=== PATIENT | male | born 1965 | race Two or more races ===

== ENCOUNTER 2024-05-28 14:11 | Emergency (ER) | payer MEDICAID, SELFPAY ==
[2024-05-28 14:23] VITALS: BP 178/105; PULSE 96; RESP 18; TEMP 36.8; O2SAT 98
--- NOTE | 2024-05-28 14:44 | XR_ITS ---
Examination: CT abdomen and pelvis without contrast. Coronal 3-D reconstructions. Sagittal 2-D reconstructions. Date and time of exam:May 28, 2024 1521 hrs. Indications: Unable to urinate today. CTDI: vol (mGy): 8.58 DLP: (mGycm): 572 Technique: Axial images of the abdomen have been obtained, 3 mm slice thickness Intravenous contrast material has not been administered. Low dose protocols were performed. One or more of the following dose reduction techniques were used; automated exposure control, adjustment of the mA and/or KV according to patient size, use of iterative reconstruction technique. 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
--- NOTE | 2024-05-28 14:47 | PD.EDRME ---
Rapid Medical Screening Exam RME Arrival date/time: 05/28/24 14:11 58-year-old male presents to the emergency department today complains of urinary retention patient attributes this to possibly be related to sticking a probe inside of his penis months ago Chief Complaint: General Adult/Misc Complain Time Seen by Provider: 05/28/24 18:08 Vital signs: Vital Signs Temperature 98.2 F 05/28/24 14:23 Pulse Rate 96 05/28/24 14:23 Respiratory Rate 18 05/28/24 14:23 Blood Pressure 178/105 H 05/28/24 14:23 Pulse Oximetry (%) 98 05/28/24 14:23 Oxygen Delivery Method Room Air 05/28/24 14:23
[2024-05-28] MEDS: KETOROLAC INJ 30 MG/ML VIAL IM (15:14)
[2024-05-28 15:19] LABS: Collection Type, Urine Clean Catch; Squamous Epithelial Cell,Urine 0 /hpf (0-5); WBC,Urine 0 /hpf (0-5)
[2024-05-28 16:22] LABS: Basophils # (Auto) 0.1 Thou/mm3 (0.0-0.2); Basophils % (Auto) 1 % (0-2.5); Eosinophils % (Auto) 0 % (0-10); Hematocrit 44.4 % (41.0-53.0); Hemoglobin 15.6 g/dL (13.5-16.0); Immature Granulocytes % (Auto) 1 % (0-0); Lymphocytes % (Auto) 5 % (10-50); Mean Corpuscular HGB Conc 35.1 g/dl (31.0-37.0); Mean Corpuscular Hemoglobin 31.5 pg (25.0-35.0); Mean Corpuscular Volume 90 fL (80-100); Monocytes # (Auto) 1.1 Thou/mm3 (0.0-0.8); Monocytes % (Auto) 6 % (0-12); Neutrophils % (Auto) 88 % (37-80); Nucleated Red Blood Cell % 0 /100 WBC (0); Platelet Count 240 Thou/mm3 (140-440); RDW Standard Deviation 42.4 fL (35.1-43.9); Red Blood Count 4.95 Miln/mm3 (4.50-5.90); White Blood Count 19.3 Thou/mm3 (3.8-10.6)
[2024-05-28 16:42] LABS: Alanine Aminotransferase 28 U/L (10-49); Albumin, Serum 4.9 gm/dL (3.5-5.0); Albumin/Globulin Ratio 1.8 (1.2-2.2); Alkaline Phosphatase 62 U/L (46-116); Anion Gap 8 (7-16); Aspartate Amino Transferase 24 U/L (0-34); BUN/Creatinine Ratio 10 Ratio (12-20); Bilirubin,Total 0.8 mg/dL (0.3-1.2); Blood Urea Nitrogen 12 mg/dL (9-23); Calcium 9.4 mg/dL (8.3-10.6); Calcium (Corrected) 9.4 mg/dL (8.5-10.1); Carbon Dioxide 30.3 mMol/L (20.0-31.0); Chloride 104 mMol/L (98-107); Creatinine (Component) 1.2 mg/dL (0.6-1.3); Globulin 2.8 gm/dL (2.3-3.5); Glucose 134 mg/dL (74-106); Osmolality,Calculated 284 (275-295); Potassium 3.7 mMol/L (3.4-5.1); Sodium 142 mMol/L (136-145); Total Protein 7.7 gm/dL (5.7-8.2); eGFR > 60 See Note
[2024-05-28 16:47] LABS: Bilirubin,Urine Negative (Negative); Blood,Urine 3+ (Negative); Culture Indicated,Urine Not Indicated; Glucose, Urine Trace (Negative); Ketones,Urine Negative (Negative); Leukocyte Esterase,Urine Negative (Negative); Nitrite,Urine Negative (Negative); Protein,Urine 3+ (Neg - Trace); RBC,Urine 111217 /hpf (0-3); Specific Gravity,Urine 1.023 (1.001-1.035); Urobilinogen,Urine Negative mg/dL (0.0-1.0)
[2024-05-28 16:50] LABS: Clarity,Urine Bloody (Clear/Hazy); Color,Urine Drk-Red (Lt Yel-Yel)
--- NOTE | 2024-05-28 19:52 | EDNOTE_ITS ---
ED General RME/HPI General Chief complaint: General Adult/Misc Complain Stated complaint: UNABLE TO URINATE, TRICKLES OUT Time Seen by Provider: 05/28/24 18:08 Arrival date/time: 05/28/24 14:11 CC: Urinary retention HPI after sticking a probe inside his penis approximately 2 months ago the patient felt that this was the cause initially of him feeling like his urine is stopped coming out . Prior to my assessment of the patient Velazquez catheter and been ordered and placed while in a different part of the triage area. He continues to drain bright red blood. Patient contends it is all painless. The patient has had a no past medical history has not seen a doctor in years denies any nausea abdominal pain chest pain shortness of breath difficulty breathing headache nausea vomiting. Patient is on no end medicines has no allergies is afebrile nontoxic-appearing not in any acute distress but is somewhat anxious. At 2130, patient informed the nurse he is [employer]es not wanting any blood products. RME / HPI RME / HPI narrative: 05/28/24 14:11 58-year-old male presents to the emergency department today complains of urinary retention patient attributes this to possibly be related to sticking a probe inside of his penis months ago Related Data Allergies Allergy/AdvReac Type Severity Reaction Status Date / Time No Known Allergies Allergy Verified 05/28/24 14:14 Review of Systems Review of Systems Narrative Review of Systems: GEN: No fever, no chills, no weight loss EYES: No discharge, no visual changes, no pain HEENT: No ear pain, no congestion, no sore throat PULM: No shortness of breath, no cough, no congestion CV: No chest pain, no dyspnea on exertion, no palpitations GI: No nausea, no vomiting, no diarrhea, no pain, no constipation : No frequency, no urgency, no dysuria, urinary retention MUSC/SKEL: No joint pain, no back pain SKIN: No rash PSYCH: No hallucinations, no depression HEME/LYMPH: No easy bleeding or bruising tendencies NEURO: No weakness, no headache Past Medical History Social History SMOKING STATUS: Never smoker ED Exam Narrative Physical exam: [General: Not in any acute distress, somewhat flat affect. Head normocephalic HEENT: Eyes: Pupils are PERRLA EOMs are intact mouth pink moist membranes uvula is midline swallow symmetrical phonation is normal all the subsystems of ATTR within acceptable limits Neck is supple nontender Chest equal chest rise nontender to palpation Respiratory: Clear to auscultation no wheezes crackles or rubs CV: Rate rhythm is regular no murmurs rubs or clicks Abdomen is soft nontender no masses positive bowel sounds all 4 quadrants : The patient has a Velazquez catheter admitted from his meatus of his penis, there is no crusting around the meatus however the Velazquez catheter is draining burgundy colored urine approximately 500 cc in the bag. Back: No CVA tenderness no spinous process tenderness from cervical spine thoracic and lumbar spine Skin: Intact no petechiae rash induration ulceration or crepitus Extremities: Moving all extremity against resistance cap refill less than 2 seconds neurosensory intact Neuro: Awake alert oriented x3 Glascow coma 15 no focal deficits] Course Course Course Narrative: Patient's case declined at [facility] to talk to urologist, who stated he needs tertiary care including interventional radiology to stop the bleeding. [place] declined Spoke with Dr. Reynolds at 2125 he agrees to accept the patient at [facility]. Currently waiting to give report to the ER at [facility]. Dr Esteban ER doctor agrees to accept the patient for admission Quality Measures none Orders Category Date Time Status Velazquez [Urinary Catheter] NOW Care 05/28/24 14:43 Completed Velazquez to Leg Bag Routine Care 05/28/24 14:[address] abdomen pelvis wo con Stat Exams 05/28/24 14:44 Completed CBC Stat Lab 05/28/24 16:03 Completed CBC Stat Lab 05/28/24 20:29 Completed Comprehensive Metabolic Panel Stat Lab 05/28/24 16:03 Completed PT [Prothrombin Time with INR] Stat Lab 05/28/24 20:29 Completed PTT [Partial Thromboplastin Time] Stat Lab 05/28/24 20:29 Completed Type and Screen Stat Lab 05/28/24 20:29 Completed UA, C/S IF [Urinalysis, C/S if Indicated] Stat Lab 05/28/24 14:58 Completed Ketorolac Inj [Toradol Inj] Med 05/28/24 15:00 Discontinued 30 mg IM X1 ONE Morphine Inj Med 05/28/24 21:41 Discontinued 4 mg IVP X1 ONE Ondansetron Inj [Zofran Inj] Med 05/28/24 21:41 Discontinued 4 mg IV X1 ONE Sodium Chloride 0.9% 1000 ml [Ns] 1,000 ml Med 05/28/24 21:41 Discontinued IV 125 mls/hr Vital Signs Vital signs: Vital Signs Temperature 98.2 F 05/28/24 14:23 Pulse Rate 96 05/28/24 14:23 Respiratory Rate 18 05/28/24 14:23 Blood Pressure 178/105 H 05/28/24 14:23 Pulse Oximetry (%) 98 05/28/24 14:23 Oxygen Delivery Method Room Air 05/28/24 14:23 Discharge Plan Plan Patient Disposition: [facility] Acute Care [facility] Facility Pt Being Transferred to: Other-Specify in comment Service Needed for Transfer: Urology Prescriptions/Referrals Referrals: Allan Casas MD [Primary Care Provider] - In 1 week Problem List Clinical Impression: Renal mass, Abdominal hemorrhage Patient/Caregiver Discharge Instructions Print Language: Sammarinese Stand Alone Forms: Brooke Award Info., Patient Portal Info Letter PA/PLANT EQUIPMENT ENGINEER Supervising Physician PA/PLANT EQUIPMENT ENGINEER Supervising Physician: Ayo Babcock ENP MDM Patient Acuity High Acuity (complete MDM) Clinical Information Provided by: patient Medical Records reviewed [facility] Medical Records additional comments: No old medical records Labs/Rad/Tests considered, not ordered Describe: CBC shows a leukocytosis of 19.3 and H&H that is unremarkable, platelet count of 240. CMP shows no significant electrolyte imbalances no renal impairment transaminitis glucose of 134. T. bili is normal. Urine is dark red bloody with greater than 100,000 RBCs no bacteria negative for leukocyte esterase. Imaging Imaging Interpretation(s): CT shows a large right renal mass with probable hemorrhage 11 x 13 x 12 cm. Medication Administration(s) none Medication Administration History Discontinued Medications Sodium Chloride (Ns) 1,000 mls @ 125 mls/hr IV .Q8H ONE Stop: 05/29/24 05:40 Last Admin: 05/28/24 21:51 Dose: 125 mls/hr Documented By: EF Ketorolac Tromethamine (Ketorolac Inj 30 Mg/Ml Vial) 30 mg IM X1 ONE Stop: 05/28/24 15:01 Last Admin: 05/28/24 15:14 Dose: 30 mg Documented By: KF Morphine Sulfate (Morphine Sulf Inj 10 Mg/Ml Vial) 4 mg IVP X1 ONE Stop: 05/28/24 21:42 Last Admin: 05/28/24 21:51 Dose: 4 mg Documented By: EF Ondansetron HCl (Ondansetron Inj 2 Mg/Ml Inj 2 Ml) 4 mg IV X1 ONE; Protocol Stop: 05/28/24 21:42 Last Admin: 05/28/24 21:51 Dose: 4 mg Documented By: EF
[2024-05-28 20:13] VITALS: BP 124/94; PULSE 68; RESP 19; TEMP 36.9; O2SAT 97
[2024-05-28 21:03] LABS: Basophils # (Auto) 0.1 Thou/mm3 (0.0-0.2); Basophils % (Auto) 0 % (0-2.5); Eosinophils % (Auto) 0 % (0-10); Hematocrit 34.1 % (41.0-53.0); Immature Granulocytes % (Auto) 0 % (0-0); Immature Granulocytes Auto 0.06 Thou/mm3 (0.00-0.00); Lymphocytes # (Auto) 1.8 Thou/mm3 (1.0-4.8); Lymphocytes % (Auto) 12 % (10-50); Mean Corpuscular HGB Conc 35.2 g/dl (31.0-37.0); Mean Corpuscular Hemoglobin 31.9 pg (25.0-35.0); Mean Corpuscular Volume 91 fL (80-100); Monocytes # (Auto) 1.5 Thou/mm3 (0.0-0.8); Monocytes % (Auto) 10 % (0-12); Neutrophils # (Auto) 11.7 Thou/mm3 (1.8-7.7); Neutrophils % (Auto) 78 % (37-80); Nucleated Red Blood Cell % 0 /100 WBC (0); Platelet Count 216 Thou/mm3 (140-440); RDW Standard Deviation 42.9 fL (35.1-43.9); Red Blood Count 3.76 Miln/mm3 (4.50-5.90)
[2024-05-28 21:16] LABS: INR 1.1 (0.9-1.3); Partial Thromboplastin Time 25.1 Seconds (22.0-36.0); Prothrombin Time 11.9 Seconds (9.0-12.2)
--- NOTE | 2024-05-28 21:18 | PC.LAC ---
1954 NITHYA NEGRON CONTACTED PT DECLINED STATING PT NEEDS [facility]. 2146 RYLIE ANDERSON CONTACTED. 2154 [facility] CONTACTED WILL RETURN CALL MESSAGE WAS LEFT WITH UROLOGIST.
[2024-05-28 21:47] VITALS: BP 116/79; PULSE 78
[2024-05-28] MEDS: SODIUM CHLORIDE 0.9% 1000 ML 1,000 ML 125 ML IV (21:51)
[2024-05-28] MEDS: ONDANSETRON INJ 2 MG/ML INJ 2 ML 4 MG IV (21:51)
[2024-05-28] MEDS: MORPHINE SULF INJ 10 MG/ML VIAL 4 MG IVP (21:51)
--- NOTE | 2024-05-28 22:04 | PC.NURSE ---
[address] HUGHES WITH [facility].
--- NOTE | 2024-05-28 22:25 | PC.NURSE ---
report given to reach nurse fernanda
== END 2024-05-28 22:36 | disposition short-term general hospital (02) ==
PROVIDERS: Nurse Practitioner Primary Care; Registered Nurse General Practice; Emergency Provider Emergency Medicine; PCP Family Medicine
DX: N28.89 Other specified disorders of kidney and ureter (principal); R58 Hemorrhage, not elsewhere classified
CPT/HCPCS: 51702; 36415; 74176; 80053; 81001; 85025; 85610; 85730; 86850; 86900; 86901; 96372; 96374; 96375; 99285; J1885; J2270; J2405; J7030

== ENCOUNTER 2024-09-30 00:53 | Emergency (ER) | payer MEDICAID, SELFPAY ==
[2024-09-30 00:55] VITALS: BMI 28.1
[2024-09-30 01:44] VITALS: BP 192/107; PULSE 87; RESP 16; TEMP 36.7; O2SAT 98
--- NOTE | 2024-09-30 02:50 | EKG_ITS ---
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
[2024-09-30 03:03] VITALS: BP 179/114; BP 197/111; PULSE 78; RESP 18; TEMP 36.7; O2SAT 98
[2024-09-30 03:51] LABS: Basophils # (Auto) 0.1 Thou/mm3 (0.0-0.2); Basophils % (Auto) 1 % (0-2.5); Eosinophils # (Auto) 0.2 Thou/mm3 (0.0-0.5); Eosinophils % (Auto) 3 % (0-10); Hematocrit 43.1 % (41.0-53.0); Hemoglobin 14.4 g/dL (13.5-16.0); Immature Granulocytes Auto 0.03 Thou/mm3 (0.00-0.00); Lymphocytes # (Auto) 1.9 Thou/mm3 (1.0-4.8); Lymphocytes % (Auto) 23 % (10-50); Mean Corpuscular HGB Conc 33.4 g/dl (31.0-37.0); Mean Corpuscular Hemoglobin 30.0 pg (25.0-35.0); Mean Corpuscular Volume 90 fL (80-100); Monocytes # (Auto) 0.7 Thou/mm3 (0.0-0.8); Monocytes % (Auto) 9 % (0-12); Neutrophils # (Auto) 5.1 Thou/mm3 (1.8-7.7); Neutrophils % (Auto) 64 % (37-80); Nucleated Red Blood Cell # 0.00 Thou/mm3 (0.00-0.00); Nucleated Red Blood Cell % 0 /100 WBC (0); Platelet Count 289 Thou/mm3 (140-440); RDW Standard Deviation 43.8 fL (35.1-43.9); Red Blood Count 4.80 Miln/mm3 (4.50-5.90); White Blood Count 8.1 Thou/mm3 (3.8-10.6)
[2024-09-30 04:03] LABS: INR 1.0 (0.9-1.3); Prothrombin Time 11.0 Seconds (9.0-12.2)
[2024-09-30 04:09] LABS: Alanine Aminotransferase 28 U/L (10-49); Albumin, Serum 4.9 gm/dL (3.5-5.0); Albumin/Globulin Ratio 1.5 (1.2-2.2); Alkaline Phosphatase 75 U/L (46-116); Anion Gap 10 (7-16); Aspartate Amino Transferase 14 U/L (0-34); BUN/Creatinine Ratio 10 Ratio (12-20); Bilirubin,Total 0.6 mg/dL (0.3-1.2); Blood Urea Nitrogen 15 mg/dL (9-23); Calcium 10.3 mg/dL (8.3-10.6); Calcium (Corrected) 10.3 mg/dL (8.5-10.1); Carbon Dioxide 28.7 mMol/L (20.0-31.0); Chloride 104 mMol/L (98-107); Creatinine (Component) 1.5 mg/dL (0.6-1.3); Estimated Creatinine Clearance 56.6 mL/min (>60); Globulin 3.2 gm/dL (2.3-3.5); Glucose 109 mg/dL (74-106); Magnesium 2.0 mg/dL (1.6-2.6); Osmolality,Calculated 286 (275-295); Potassium 4.2 mMol/L (3.4-5.1); Sodium 143 mMol/L (136-145); Total Protein 8.1 gm/dL (5.7-8.2); Troponin I < 0.020 ng/mL (0.0-0.045); eGFR 54 See Note
[2024-09-30 04:47] LABS: Collection Type, Urine Clean Catch
[2024-09-30 04:50] LABS: Bilirubin,Urine Negative (Negative); Blood,Urine Negative (Negative); Clarity,Urine Clear (Clear/Hazy); Color,Urine Colorless (Lt Yel-Yel); Culture Indicated,Urine Not Indicated; Glucose, Urine Negative (Negative); Ketones,Urine Negative (Negative); Leukocyte Esterase,Urine Negative (Negative); Nitrite,Urine Negative (Negative); PH,Urine 7.0 (5.0-7.0); Protein,Urine Negative (Neg - Trace); RBC,Urine < 1 /hpf (0-3); Specific Gravity,Urine 1.004 (1.001-1.035); Squamous Epithelial Cell,Urine < 1 /hpf (0-5); Urobilinogen,Urine Negative mg/dL (0.0-1.0); WBC,Urine < 1 /hpf (0-5)
[2024-09-30 05:01] LABS: Amphetamine/Methamp Scrn,U Negative (Negative); Barbiturate Screen,Urine Negative (Negative); Benzodiazepines Screen,Urine Negative (Negative); Benzoylecgonine Screen, Ur Negative (Negative); Fentanyl Screen,Urine Negative (Negative); Opiate Screen,Urine Negative (Negative); THC Screen,Urine Negative (Negative)
--- NOTE | 2024-09-30 05:15 | EDRME_ITS ---
Rapid Medical Screening Exam RME Arrival date/time: 09/30/24 00:53 59M with history of recent kidney resection due to tumor on it (done at [facility] in [place]) presents to ED with elevated BP and distal paresthesia. Patient has had increased stress at home due to mom letting drug- addict sibling stay with them. Patient denies MOON, blurry vision, CP, and SOB. Chief Complaint: General Adult/Misc Complain Vital signs: Vital Signs Temperature 98.1 F 09/30/24 01:44 Pulse Rate 87 09/30/24 01:44 Respiratory Rate 16 09/30/24 01:44 Blood Pressure 192/107 H 09/30/24 01:44 Pulse Oximetry (%) 98 09/30/24 01:44 Oxygen Delivery Method Room Air 09/30/24 01:44
--- NOTE | 2024-09-30 05:16 | XR_ITS ---
Examination: Retroperitoneal ultrasound, complete Technique: Multiple high resolution grayscale images of the retroperitoneum obtained, including kidneys and bladder. Exam date and time:September 30, 2024, 0734 hrs. Indications: High blood pressure beginning one week ago, history left nephrectomy June 2024. Findings: Right kidney 12.1 cm renal cortex 1.4 cm Mild renal parenchymal scar formation. No hydronephrosis. Absent left kidney. Contracted urinary bladder. No prostatomegaly, no prostate nodule, prostate volume 15 cc Impression: Right renal cortical thinning. Mild right renal parenchymal scar formation, no hydronephrosis
[2024-09-30 05:29] VITALS: BP 179/114; PULSE 78
[2024-09-30] MEDS: DIAZEPAM 5 MG TABLET PO (05:30)
[2024-09-30 08:46] VITALS: BP 156/116; BP 176/112; PULSE 81; RESP 18; TEMP 37.2; O2SAT 98
[2024-09-30 10:38] VITALS: BP 195/118; BP 204/107; PULSE 81; RESP 19; TEMP 36.7; O2SAT 99
--- NOTE | 2024-09-30 10:43 | PD.EDADULT ---
ED General RME/HPI General Chief complaint: General Adult/Misc Complain Stated complaint: FEELS LIKE BLOOD PRESSURE IS HIGH Time Seen by Provider: 09/30/24 08:50 Arrival date/time: 09/30/24 00:53 Limitations: no limitations RME / HPI RME / HPI narrative: 09/30/24 00:53 59M with history of recent kidney resection due to tumor on it (done at [facility] in [place]) presents to ED with elevated BP and distal paresthesia. Patient has had increased stress at home due to mom letting drug-addict sibling stay with them. Patient denies MOON, blurry vision, CP, and SOB. Related Data Previous Rx's ?Medication ?Instructions ?Recorded lisinopril 5 mg tablet 5 mg PO QDAY #14 tabs 10/03/24 hydroxyzine HCl 25 mg tablet 25 mg PO BID PRN nervous #30 tabs 10/27/24 Allergies Allergy/AdvReac Type Severity Reaction Status Date / Time No Known Allergies Allergy Verified 10/27/24 20:48 ED Exam General Limitations: Present no limitations General appearance: Present alert and in no apparent distress Head Head exam: Present atraumatic and normocephalic Eye Eye exam: Present normal appearance, PERRL and EOMI; Absent scleral icterus or conjunctival injection ENT ENT exam: Present normal exam, normal oropharynx and mucous membranes moist Neck Neck exam: Present normal inspection, full ROM and trachea midline; Absent tenderness, meningismus or lymphadenopathy Chest Chest inspection: Present normal inspection and symmetric chest wall rise Respiratory Respiratory exam: Present normal lung sounds bilaterally and respiratory distress Cardiovascular Cardiovascular exam: Present regular rate and normal rhythm Abdominal Exam Abdominal exam: Present soft; Absent distention, tenderness, guarding or rebound Extremities Exam Extremities exam: Present normal inspection Back Exam Back exam: Present normal inspection Neurological Exam Neurological exam: Present alert, oriented X3 and CN II-XII intact Psychiatric Psychiatric exam: Present normal affect and normal mood Skin Skin exam: Present warm, dry and intact Course Quality Measures none Orders Category Date Time Status EKG (ED ONLY) *Do not use* NOW Care 09/30/24 02:51 Completed EKG (ED Only) Stat Exams 09/30/24 02:50 Draft US renal BI Stat Exams 09/30/24 05:16 Completed CBC Stat Lab 09/30/24 03:38 Completed Comprehensive Metabolic Panel Stat Lab 09/30/24 03:38 Completed Drug Screen,Urine Stat Lab 09/30/24 04:16 Completed Magnesium Stat Lab 09/30/24 03:38 Completed Prothrombin Time with INR Stat Lab 09/30/24 03:38 Completed Troponin I Stat Lab 09/30/24 03:38 Completed UA, C/S IF [Urinalysis, C/S if Indicated] Stat Lab 09/30/24 04:16 Completed Diazepam [Valium] Med 09/30/24 05:15 Discontinued 5 mg PO X1 ONE amLODIPine BESYLATE [Norvasc] Med 09/30/24 10:53 Discontinued 5 mg PO X1 ONE hydrALAZINE HCL [Apresoline] Med 09/30/24 05:15 Discontinued 25 mg PO X1 ONE Vital Signs Vital signs: Vital Signs Temperature 98.1 F 09/30/24 01:44 Pulse Rate 87 09/30/24 01:44 Respiratory Rate 16 09/30/24 01:44 Blood Pressure 192/107 H 09/30/24 01:44 Pulse Oximetry (%) 98 09/30/24 01:44 Oxygen Delivery Method Room Air 09/30/24 01:44 Discharge Plan Plan Patient Disposition: HOME (Self Care) Prescriptions/Referrals Prescriptions/Med Rec: No Action lisinopril 5 mg tablet 5 mg PO QDAY Qty: 14 0RF hydroxyzine HCl 25 mg tablet 25 mg PO BID PRN (Reason: nervous) Qty: 30 0RF Referrals: Rafael Fitzgerald MD [Primary Care Provider] - In 1 week Problem List Clinical Impression: Acute kidney injury, Hypertension Patient/Caregiver Discharge Instructions Education Materials: Hypertension and Kidney Disease, Acute Kidney Failure Dc Additional Instructions: Please follow-up with your primary care doctor within 2 weeks. Please keep a log of your blood pressure measurement in the morning and in the evening before bed. Please do this for the next 2 weeks. Please take this journal to your primary care doctor and discuss whether or not you need to be started on medication for blood pressure control. Today your creatinine was 1.5, your GFR was 54. Previously your creatinine was 1.6 and your GFR was normal. Important that we monitor your blood pressure and renal function closely with your primary care doctor as an outpatient to make sure that your right kidney does not get injured as you only have 1 kidney. Please return immediately if you have worsening symptoms or new symptoms or concern. Print Language: Uzbek Stand Alone Forms: Brooke Award Info., Patient Portal Info Letter MDM Narrative MDM hospital course: Labs without acute hematologic abnormality, no leukocytosis, no left shift, patient hemoglobin 14.4, no acute electrolyte abnormalities, patient creatinine is 1.5 her prior recorded creatinine is 1.2. Patient GFR is 54, no significant other metabolic disturbance. Urinalysis without evidence of infection. Drug screen is negative. Renal ultrasound shows renal cortical thinning otherwise no other abnormalities. trop not elevated, ekg performed today at 3:06, sinus rhythm, nl int, non spec t wave changes, not a cardiac alert On reevaluation patient hemodynamically stable not distressed will discharge home close return precautions follow-up with his primary care doctor as well as his clinical transformation specialist. Patient w/o evidence of hypertensive emergency, acs or arrythmia. Clinical Information Provided by patient Medical Records Reviewed [facility] Meds/Rx Considered, not Ordered None Labs/Rad/Tests considered, not Ordered None Chronic Illness/Social Conditions which may negatively complicate care or outcome(s)-explain: other (HTN) Lab Interpretation Labs: interpreted by me and see narrative above Imaging Imaging interpretation: see narrative above Medication Administration(s) none Medication Administration History Discontinued Medications Amlodipine Besylate (Amlodipine Besylate 5 Mg Tablet) 5 mg PO X1 ONE Stop: 09/30/24 10:54 Last Admin: 09/30/24 11:55 Dose: Not Given Documented By: Non-Admin Reason: Cancelled by Provider Comments: not needed per provider spb less than 200 Diazepam (Diazepam 5 Mg Tablet) 5 mg PO X1 ONE Stop: 09/30/24 05:16 Last Admin: 09/30/24 05:30 Dose: 5 mg Documented By: OUMAR Hydralazine HCl (Hydralazine Hcl 25 Mg Tablet) 25 mg PO X1 ONE Stop: 09/30/24 05:16 Last Admin: 09/30/24 05:29 Dose: 25 mg Documented By: OUMAR see above Diagnosis Differential diagnosis: giovanni on CKD, htn Dispositon Disposition: Discharge Home
[2024-09-30 11:49] VITALS: BP 166/122; BP 185/112; PULSE 83; RESP 20; O2SAT 99
== END 2024-09-30 11:00 | disposition home or self-care (01) ==
PROVIDERS: Emergency Medicine; Emergency Provider Emergency Medicine; PCP Family Medicine
DX: N17.9 Acute kidney failure, unspecified (principal); I10 Essential (primary) hypertension
CPT/HCPCS: 36415; 76770; 80053; 80307; 81001; 83735; 84484; 85025; 85610; 93005; 99283; A9270

== ENCOUNTER 2024-10-02 22:18 | Emergency (ER) | payer MEDICAID, SELFPAY ==
[2024-10-02 22:19] VITALS: BMI 27.2
[2024-10-02 22:52] VITALS: BP 175/118; PULSE 93; RESP 17; TEMP 36.9; O2SAT 99
[2024-10-03 00:50] VITALS: BP 162/121; PULSE 70; RESP 20; TEMP 36.8; O2SAT 99
--- NOTE | 2024-10-03 02:27 | XR_ITS ---
Examination: CT brain head without contrast. 2-D sagittal coronal reconstructions Date and time of exam:October 03, 2024, 0309 hours INDICATIONS: Onset of high blood pressure and headache today CTDI: vol (mGy):50 DLP: (mGycm):1019. Technique: Multiple CT axial sections of the brain have been obtained, 5 mm slice thickness. Contrast has not been administered. 2-D sagittal, coronal reconstructions have been obtained Low dose protocols were performed. One or more of the following dose reduction techniques were used; automated exposure control, adjustment of the mA and/or KV according to patient size, use of iterative reconstruction technique. Findings: No significant ventricular enlargement. Intra-axial or extra-axial hemorrhage density is not seen. No mass effect or midline shift Basal cisterns are not remarkable. Fourth ventricle is midline. Cranial vault intact. Impression: Negative for acute hemorrhage, mass effect or midline shift
--- NOTE | 2024-10-03 02:28 | PD.EDRME ---
Rapid Medical Screening Exam RME Arrival date/time: 10/02/24 22:18 This is a case of 59-year-old male with history of hypertension came into the emergency room due to headache fever and high blood pressure persistence of the symptoms this patient decided to sought consult here in the emergency room Chief Complaint: General Adult/Misc Complain Time Seen by Provider: 10/02/24 23:56 Vital signs: Vital Signs Temperature 98.4 F 10/02/24 22:52 Pulse Rate 93 10/02/24 22:52 Respiratory Rate 17 10/02/24 22:52 Blood Pressure 175/118 H 10/02/24 22:52 Pulse Oximetry (%) 99 10/02/24 22:52 Oxygen Delivery Method Room Air 10/02/24 22:52
[2024-10-03 02:50] LABS: Basophils # (Auto) 0.1 Thou/mm3 (0.0-0.2); Basophils % (Auto) 1 % (0-2.5); Eosinophils # (Auto) 0.2 Thou/mm3 (0.0-0.5); Eosinophils % (Auto) 3 % (0-10); Hematocrit 40.3 % (41.0-53.0); Hemoglobin 14.1 g/dL (13.5-16.0); Immature Granulocytes Auto 0.02 Thou/mm3 (0.00-0.00); Lymphocytes # (Auto) 2.2 Thou/mm3 (1.0-4.8); Lymphocytes % (Auto) 25 % (10-50); Mean Corpuscular HGB Conc 35.0 g/dl (31.0-37.0); Mean Corpuscular Hemoglobin 30.5 pg (25.0-35.0); Mean Corpuscular Volume 87 fL (80-100); Monocytes # (Auto) 0.8 Thou/mm3 (0.0-0.8); Monocytes % (Auto) 9 % (0-12); Neutrophils # (Auto) 5.6 Thou/mm3 (1.8-7.7); Neutrophils % (Auto) 63 % (37-80); Nucleated Red Blood Cell # 0.00 Thou/mm3 (0.00-0.00); Nucleated Red Blood Cell % 0 /100 WBC (0); Platelet Count 278 Thou/mm3 (140-440); RDW Standard Deviation 42.8 fL (35.1-43.9); Red Blood Count 4.62 Miln/mm3 (4.50-5.90); White Blood Count 9.0 Thou/mm3 (3.8-10.6)
[2024-10-03 02:53] VITALS: BP 154/112; PULSE 75
[2024-10-03 02:54] VITALS: BP 154/112; PULSE 75
[2024-10-03 03:07] LABS: Alanine Aminotransferase 19 U/L (10-49); Albumin, Serum 4.5 gm/dL (3.5-5.0); Albumin/Globulin Ratio 1.6 (1.2-2.2); Alkaline Phosphatase 70 U/L (46-116); Anion Gap 10 (7-16); Aspartate Amino Transferase 13 U/L (0-34); BUN/Creatinine Ratio 8 Ratio (12-20); Bilirubin,Total 0.9 mg/dL (0.3-1.2); Blood Urea Nitrogen 11 mg/dL (9-23); Calcium 9.9 mg/dL (8.3-10.6); Calcium (Corrected) 9.9 mg/dL (8.5-10.1); Carbon Dioxide 27.8 mMol/L (20.0-31.0); Chloride 103 mMol/L (98-107); Creatinine (Component) 1.3 mg/dL (0.6-1.3); Estimated Creatinine Clearance 59.9 mL/min (>60); Globulin 2.8 gm/dL (2.3-3.5); Glucose 111 mg/dL (74-106); Osmolality,Calculated 281 (275-295); Potassium 3.7 mMol/L (3.4-5.1); Sodium 141 mMol/L (136-145); Total Protein 7.3 gm/dL (5.7-8.2); Troponin I < 0.020 ng/mL (0.0-0.045); eGFR > 60 See Note
--- NOTE | 2024-10-03 04:15 | PRELIM_ITS ---
CT scan of the head without intravenous contrast (axial sections with sagittal and coronal reformats). October 03, 2024 0309 hours Clinical History: HEADACHE Comparison: None Findings: There is no intracranial hemorrhage, extra-axial collection, mass, mass-effect or midline shift. There is good mulligan-white differentiation. There is no CT evidence of acute large vascular territorial infarct. Ventricles are not enlarged or effaced. Visualized paranasal sinuses and tympanomastoid cavities are clear. The bony calvarium is intact. Impression: No intracranial hemorrhage, mass-effect or midline shift. No CT evidence of acute large vascular territorial infarct. Report Electronically Signed By: Jake Munson 10/03/2024 4:14:34 AM [EST]
[2024-10-03 04:35] VITALS: BP 182/110; PULSE 72
[2024-10-03 04:36] VITALS: BP 182/110; PULSE 72
[2024-10-03 05:02] VITALS: BP 156/97; PULSE 100; RESP 17; TEMP 36.6; O2SAT 98
--- NOTE | 2024-10-03 05:09 | PD.EDHA ---
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 and regularly seeing his urologist denies any urinary symptoms patient was recently seen here on September 30, 2024 due to elevated BP and was treated here and symptoms resolved recurrence of the symptoms this patient decided to sought consult here in the emergency room Limitations: no limitations RME / HPI RME / HPI Narrative: 10/02/24 22:18 This is a case of 59-year-old male with history of hypertension came into the emergency room due to headache fever and high blood pressure persistence of the symptoms this patient decided to sought consult here in the emergency room Related Data Previous Rx's ?Medication ?Instructions ?Recorded lisinopril 5 mg tablet 5 mg PO QDAY #14 tabs 10/03/24 Allergies Allergy/AdvReac Type Severity Reaction Status Date / Time No Known Allergies Allergy Verified 05/28/24 14:14 Review of Systems Review of Systems Systems Reviewed: All systems reviewed, normal except as documented Constitutional Constitutional: Reports system reviewed and no additional complaints, except as documented and Reports as per HPI Eyes Eyes: Reports system reviewed and no additional complaints, except as documented and Denies blurry vision Cardiovascular Cardiovascular: Reports system reviewed and no additional complaints, except as documented, Reports as per HPI, Denies chest pain and Denies dyspnea Respiratory Respiratory: Reports system reviewed and no additional complaints, except as documented, Reports as per HPI and Denies dyspnea Gastrointestinal Gastrointestinal: Reports system reviewed and no additional complaints, except as documented and Reports as per HPI Neurologic Neurologic: Reports system reviewed and no additional complaints, except as documented and Reports as per HPI Past Medical History Past Medical History CARDIAC: Negative Congestive Heart Failure RESPIRATORY: Negative Chronic Obstructive Pulmonary Disease (COPD) GENITOURINARY: Negative Renal Disease ENDOCRINE: Negative Diabetes Mellitus Type 1 or Diabetes Mellitus Type 2 Social History SMOKING STATUS: Never smoker ED Exam General Limitations: Present no limitations General appearance: Present alert, in no apparent distress and other (Patient is awake alert oriented not in distress nontoxic looking well-hydrated well-nourished) Head Head exam: Present atraumatic, normocephalic and normal inspection Eye Eye exam: Present normal appearance, PERRL, EOMI and other (NO PAPPILEDEA NO HYPEMA) ENT ENT exam: Present normal exam, normal oropharynx, mucous membranes moist and other (Normal HEENT exam) Neck Neck exam: Present normal inspection, full ROM and trachea midline; Absent tenderness, meningismus, lymphadenopathy or thyromegaly Chest Chest inspection: Present normal inspection and symmetric chest wall rise; Absent tenderness, rash or abscess Respiratory Respiratory exam: Present normal lung sounds bilaterally; Absent respiratory distress, wheezes, stridor, accessory muscle use or prolonged expiratory phase Cardiovascular Cardiovascular exam: Present regular rate, normal rhythm and normal heart sounds; Absent bradycardia, tachycardia, irregular rhythm, systolic murmur or diastolic murmur Abdominal Exam Abdominal exam: Present soft and normal bowel sounds; Absent distention, tenderness, guarding, rebound, rigidity, diminished bowel sounds, hyperactive bowel sounds, hypoactive bowel sounds or organomegaly Extremities Exam Extremities exam: Present normal inspection and full ROM Back Exam Back exam: Present normal inspection and full ROM Neurological Exam Neurological exam: Present alert, oriented X3, CN II-XII intact, normal gait, reflexes normal and other (Awake alert oriented x 4 no focal deficit GCS 15/15 steady gait memory intact no facial droop no slurring of speech CN II to XII is normal motor or sensory reflex normal negative Babinski); Absent motor sensory deficit Psychiatric Psychiatric exam: Present normal affect and normal mood Skin Skin exam: Present warm, dry, intact and normal color Course Quality Measures none Orders Category Date Time Status Bedside COVID-19 Antigen Test NOW Care 10/03/24 02:27 Active Bedside Influenza A&B Antigen Test NOW Care 10/03/24 02:[address] head/brain wo con Stat Exams 10/03/24 02:27 Taken CBC Stat Lab 10/03/24 02:43 Completed CMP [Comprehensive Metabolic Panel] Stat Lab 10/03/24 02:43 Completed Troponin I Stat Lab 10/03/24 02:43 Completed Acetaminophen Tab [Tylenol Tab] Med 10/03/24 02:27 Discontinued 650 mg PO X1 ONE cloNIDine HCL [Catapres] Med 10/03/24 02:27 Discontinued 0.1 mg PO X1 ONE cloNIDine HCL [Catapres] Med 10/03/24 04:14 Discontinued 0.1 mg PO X1 ONE Vital Signs Vital signs: Vital Signs Temperature 98.4 F 10/02/24 22:52 Pulse Rate 93 10/02/24 22:52 Respiratory Rate 17 10/02/24 22:52 Blood Pressure 175/118 H 10/02/24 22:52 Pulse Oximetry (%) 99 10/02/24 22:52 Oxygen Delivery Method Room Air 10/02/24 22:52 Oxygen saturation is 99% in room air Headache MDM Narrative MDM Narrative:: This is a case of 59-year-old male who came in the emergency room due to headache on and off for 3 days associated with elevated blood pressure patient BP at home was 200/100 denies any numbness weakness tingling sensation denies dizziness nausea or vomiting denies any chest pain shortness of breath or palpitation patient is not taking any blood pressure medication only taking herbal 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 and regularly seeing his urologist denies any urinary symptoms patient was recently seen here on September 30, 2024 due to elevated BP and was treated here and symptoms resolved recurrence of the symptoms this patient decided to sought consult here in the emergency room physical examination patient is awake alert oriented not in distress nontoxic looking PERRL EOM intact normal conjunctiva NOPAPPILEDEMA no hyphema negative for meningeal signs lungs sound is clear no crackles no rales no retraction no stridor heart normal rate regular rhythm no murmur abdomen soft no guarding no rebound no rigidity patient blood test showed no leukocytosis no anemia kidney and liver function is normal no electrolyte imbalance urinalysis is normal CT scan of the head is normal and unremarkable EKG showed sinus rhythm 79 troponin is negative patient was given ibuprofen for headache and clonidine point total 0.2 mg p.o. for BP of 184/102 patient blood pressure was rechecked and observe after 1 hour headache was resolved and noted to be BP of 159/79 at this point patient will be discharged home with stable condition patient will follow-up with PCP in 2 days for reevaluation and to be referred to certified nurse midwife for further evaluation and treatment of uncontrolled hypertension I will prescribe patient with lisinopril low-dose 5 mg p.o. for 14 days until he will see his primary care physician for further evaluation and treatment and to continue the medication cardiac diet was advised continue to monitor blood pressure and also follow-up with his urologist patient is informed for any worsening symptoms or any emergent concern he will return in the emergency room immediately or call 911 neurological exam is normal and unremarkable Patient was discharged with comfortable condition walking with stable gait. Patient verbalized no further complains explained diagnosis and answered patient question. Patient is comfortable with the proposed management plan including the need to follow up with his/her primary care physician and any specialist if applicable Discussed patient for any urgent condition or worsening sx, He/She needed to go to emergency room immediately or call 911. Patient acknowledge the responsibility to follow up as instructed and to monitor her/his symptoms. For any persistence of the symptoms for more than 3-5 days return precaution advised. Discussed the result of the test and was given printed discharge instruction Patient data External records reviewed:: [facility] previous records Clinical information provided by:: patient Social determinants that could affect healthcare access:: none Patient has the following chronic illnesses:: None How is presenting disease/condition affected by chronic disease/condition?: no chronic disease Evaluation data The following diagnostics were reviewed and interpreted by me:: lab results and radiology exam(s) Lab and/or radiology exams considered but not ordered:: Reviewed Interpretation Summary: Reviewed Medications / Prescriptions Medications or Prescriptions considered but not ordered:: Given Medication administrations:: Medication Administration History Discontinued Medications Acetaminophen (Acetaminophen 325 Mg Tablet) 650 mg PO X1 ONE Stop: 10/03/24 02:28 Last Admin: 10/03/24 02:55 Dose: Not Given Documented By: EE Non-Admin Reason: Patient Refused Clonidine (Clonidine Hcl 0.1 Mg Tablet) 0.1 mg PO X1 ONE Stop: 10/03/24 02:28 Last Admin: 10/03/24 02:54 Dose: 0.1 mg Documented By: EE Clonidine (Clonidine Hcl 0.1 Mg Tablet) 0.1 mg PO X1 ONE Stop: 10/03/24 04:15 Last Admin: 10/03/24 04:36 Dose: 0.1 mg Documented By: EE Given Consultations Consultation(s) initiated? (list below): No Diagnosis Differential diagnosis headache: migraine, tension headache, headache and sinusitis Most likely diagnosis given after review of the tests above:: Headache Admission Indicated Admission indicated?: not indicated Explain why admission is indicated or not indicated:: Not indicated Admission Request Was there a request for admission?: No Admission Attestation Admission request attestation: Not indicated Disposition Plan Disposition Plan: Discharge Discharge Attestation Discharge Attestation: The patient and all family members were given an opportunity to ask questions and understood the discharge instructions. Discharge instructions specifically effects, indications for sooner follow up or return to the emergency department, and the expected course of current diagnosis. Patient condition: Stable Discharge Plan Plan Patient Disposition: HOME (Self Care) Patient condition on transfer: Stable Prescriptions/Referrals Prescriptions/Med Rec: New lisinopril 5 mg tablet 5 mg PO QDAY Qty: 14 0RF Referrals: Allan Casas MD [Primary Care Provider] - In 1 week Problem List Clinical Impression: Essential hypertension, Headache Patient/Caregiver Discharge Instructions Education Materials: Controlling High Blood Pressure, Self-Care for Headaches, Blood Pressure Check Steps, ED High Blood Pressure ... Additional Instructions: Follow-up with your primary care physician in 2 days for reevaluation and to be referred to certified nurse midwife for further evaluation and treatment of your uncontrolled hypertension and to be referred to neurologist for your headache worsening symptoms recurrence of the symptoms persistence of the symptoms return to the emergency room immediately or call 911 check your blood pressure twice a day and if your blood pressure greater than 160/100 or become symptomatic return to emergency room immediately or call 911 take your medication as directed keep hydrated cardiac diet low-fat low-salt low cholesterol diet is advised Print Language: Polish Stand Alone Forms: Brooke Award Info., Patient Portal Info Letter RIVKA/XENA Supervising Physician RIVKA/XENA Supervising Physician: Dr. Archie Alicea
== END 2024-10-03 05:14 | disposition home or self-care (01) ==
PROVIDERS: Nurse Practitioner Family; Emergency Provider Emergency Medicine; PCP Family Medicine
DX: R51.9 Headache, unspecified (principal); I10 Essential (primary) hypertension
CPT/HCPCS: 36415; 70450; 80053; 84484; 85025; 87400; 87811; 99283; A9270

== ENCOUNTER 2024-10-26 22:14 | Emergency (ER) | payer MEDICAID, SELFPAY ==
[2024-10-26 22:16] VITALS: BMI 27.3
[2024-10-26 23:40] VITALS: BP 202/116; PULSE 102; RESP 17; TEMP 36.9; O2SAT 98
--- NOTE | 2024-10-27 00:06 | EDNOTE_ITS ---
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 Patient denies MOON, dizziness, blurry vision, CP, and SOB. Limitations: no limitations Related Data Previous Rx's ?Medication ?Instructions ?Recorded lisinopril 5 mg tablet 5 mg PO QDAY #14 tabs Allergies Allergy/AdvReac Type Severity Reaction Status Date / Time No Known Allergies Allergy Verified 10/26/24 22:18 Review of Systems Review of Systems Systems Reviewed: All systems reviewed, normal except as documented Past Medical History Past Medical History CARDIAC: Negative Congestive Heart Failure RESPIRATORY: Negative Chronic Obstructive Pulmonary Disease (COPD) GENITOURINARY: Negative Renal Disease ENDOCRINE: Negative Diabetes Mellitus Type 1 or Diabetes Mellitus Type 2 Social History SMOKING STATUS: Never smoker ED Exam General Limitations: Present no limitations General appearance: Present alert, in no apparent distress and anxious Head Head exam: Present atraumatic Neck Neck exam: Present normal inspection, full ROM and trachea midline Chest Chest inspection: Present normal inspection and symmetric chest wall rise Neurological Exam Neurological exam: Present alert and oriented X3 Psychiatric Psychiatric exam: Present normal affect and anxious Skin Skin exam: Present warm, dry, intact and normal color Course Quality Measures none Orders Category Date Time Status Diazepam [Valium] Med 10/27/24 00:03 Once 5 mg PO X1 ONE hydrALAZINE HCL [Apresoline] Med 10/27/24 00:02 Once 25 mg PO X1 ONE Vital Signs Vital signs: Vital Signs Temperature 98.5 F 10/26/24 23:40 Pulse Rate 102 H 10/26/24 23:40 Respiratory Rate 17 10/26/24 23:40 Blood Pressure 202/116 H 10/26/24 23:40 Pulse Oximetry (%) 98 10/26/24 23:40 Oxygen Delivery Method Room Air 10/26/24 23:40 Anxiety MDM Narrative MDM Narrative: 59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 Patient denies MOON, dizziness, blurry vision, CP, and SOB. Physical exam reveals anxiety individual. Normal WOB. Speech normal, though pressured. Patient is afebrile and alert. Meds and associate professor of counseling given. Patient data External records reviewed:: [facility] previous records Clinical information provided by:: patient Social determinants that could affect healthcare access:: none Patient has the following chronic illnesses:: recent kidney resection How is presenting disease/condition affected by chronic disease/condition?: exacerbated by Evaluation data The following diagnostics were reviewed and interpreted by me:: other (specify) (none) Lab and/or radiology exams considered but not ordered:: not ordered Interpretation Summary: n/a Medications / Prescriptions Medications or Prescriptions considered but not ordered:: ordered Medication administrations:: Medication Administration History Diazepam (Diazepam 5 Mg Tablet) 5 mg PO X1 ONE Stop: 10/27/24 00:04 Hydralazine HCl (Hydralazine Hcl 25 Mg Tablet) 25 mg PO X1 ONE Stop: 10/27/24 00:03 Consultations Consultation(s) initiated? (list below): No Diagnosis Differential diagnosis anxiety: hyperventilation, panic disorder, acute anxiety and other (HTN) Most likely diagnosis given after review of the tests above:: HTN Admission Indicated Admission indicated?: not indicated Admission Request Was there a request for admission?: No Disposition Plan Disposition Plan: Discharge Discharge Attestation Discharge Attestation: The patient and all family members were given an opportunity to ask questions and understood the discharge instructions. Discharge instructions specifically effects, indications for sooner follow up or return to the emergency department, and the expected course of current diagnosis. Patient condition: Stable Discharge Plan Plan Patient Disposition: HOME (Self Care) Discharge Disposition comment: Stable Prescriptions/Referrals Prescriptions/Med Rec: No Action lisinopril 5 mg tablet 5 mg PO QDAY Qty: 14 0RF Problem List Clinical Impression: HTN (hypertension) Patient/Caregiver Discharge Instructions Education Materials: ED Hypertension, Established Additional Instructions: Please follow-up with PCP within 24-48 hours and return immediately if symptoms worsen. Make sure to keep taking your prescribed meds. Print Language: Russian Stand Alone Forms: Patient Portal Info Letter RIVKA/XENA Supervising Physician RIVKA/XENA Supervising Physician: Dr. Sabillon
[2024-10-27 00:17] VITALS: BP 202/116; PULSE 102
[2024-10-27] MEDS: DIAZEPAM 5 MG TABLET PO (00:17)
== END 2024-10-27 00:20 | disposition home or self-care (01) ==
LOC: SERX 10-27 00:37
PROVIDERS: Emergency Provider Emergency Medicine
DX: I10 Essential (primary) hypertension (principal); F41.9 Anxiety disorder, unspecified
CPT/HCPCS: 99282; A9270

== ENCOUNTER 2024-10-27 20:47 | Emergency (ER) | payer MEDICAID, SELFPAY ==
[2024-10-27 20:49] VITALS: BMI 27.3
[2024-10-27 20:55] VITALS: BP 157/99; PULSE 99; RESP 19; TEMP 36.9; O2SAT 99
--- NOTE | 2024-10-27 21:04 | PD.EDRECHK ---
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 Patient denies MOON, dizziness, blurry vision, CP, and SOB. Patient was here yesterday. Patient states Valium relieved symptoms. Limitations: no limitations Related Data Previous Rx's ?Medication ?Instructions ?Recorded lisinopril 5 mg tablet 5 mg PO QDAY #14 tabs 10/03/24 hydroxyzine HCl 25 mg tablet 25 mg PO BID PRN nervous #30 tabs 10/27/24 Allergies Allergy/AdvReac Type Severity Reaction Status Date / Time No Known Allergies Allergy Verified 10/27/24 20:48 Review of Systems Review of Systems Systems Reviewed: All systems reviewed, normal except as documented Past Medical History Past Medical History CARDIAC: Negative Congestive Heart Failure RESPIRATORY: Negative Chronic Obstructive Pulmonary Disease (COPD) GENITOURINARY: Negative Renal Disease ENDOCRINE: Negative Diabetes Mellitus Type 1 or Diabetes Mellitus Type 2 Social History SMOKING STATUS: Never smoker ED Exam General Limitations: Present no limitations General appearance: Present alert, in no apparent distress and anxious Head Head exam: Present atraumatic Neck Neck exam: Present normal inspection, full ROM and trachea midline Chest Chest inspection: Present normal inspection and symmetric chest wall rise Neurological Exam Neurological exam: Present alert and oriented X3 Psychiatric Psychiatric exam: Present normal affect, normal mood and anxious Skin Skin exam: Present warm, dry, intact and normal color Course Quality Measures none Orders Category Date Time Status hydrOXYzine HCL [Atarax] Med 10/27/24 21:01 Discontinued 25 mg PO X1 ONE Vital Signs Vital signs: Vital Signs Temperature 98.4 F 10/27/24 20:55 Pulse Rate 99 10/27/24 20:55 Respiratory Rate 10/27/24 20:55 Blood Pressure 157/99 H 10/27/24 20:55 Pulse Oximetry (%) 99 10/27/24 20:55 Oxygen Delivery Method Room Air 10/27/24 20:55 O2 at 99% on RA and WNLs Recheck / Abnormal Lab / Rx MDM Narrative MDM Narrative:: 59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 Patient denies MOON, dizziness, blurry vision, CP, and SOB. Patient was here yesterday. Patient states Valium relieved symptoms. Physical exam reveals anxiety individual. Normal WOB. Speech normal, though pressured. Patient is afebrile and alert. Meds and genetic counselor given. Patient data External records reviewed:: [facility] previous records Clinical information provided by:: patient Social determinants that could affect healthcare access:: mental health Patient has the following chronic illnesses:: recent kidney resection How is presenting disease/condition affected by chronic disease/condition?: exacerbated by Evaluation data The following diagnostics were reviewed and interpreted by me:: other (specify) (none) Lab and/or radiology exams considered but not ordered:: not ordered Interpretation Summary: n/a Medications / Prescriptions Medications or Prescriptions considered but not ordered:: ordered Medication administrations:: Medication Administration History Discontinued Medications Hydroxyzine HCl (Hydroxyzine Hcl 25 Mg Tablet) 25 mg PO X1 ONE Stop: 10/27/24 21:02 above Consultations Consultation(s) initiated? (list below): No Diagnosis Recheck Differential Diagnosis: encounter for medication refill, encounter for wound recheck, encounter for recheck of burn, encounter for removal of sutures, warfarin-induced coagulopathy and other (HTN, anxiety) Most likely diagnosis given after review of the tests above:: HTN Admission Indicated Admission indicated?: not indicated Admission Request Was there a request for admission?: No Disposition Plan Disposition Plan: Discharge Discharge Attestation Discharge Attestation: The patient and all family members were given an opportunity to ask questions and understood the discharge instructions. Discharge instructions specifically effects, indications for sooner follow up or return to the emergency department, and the expected course of current diagnosis. Patient condition: Stable Discharge Plan Plan Patient Disposition: HOME (Self Care) Discharge Disposition comment: Stable Prescriptions/Referrals Prescriptions/Med Rec: New hydroxyzine HCl 25 mg tablet 25 mg PO BID PRN (Reason: nervous) Qty: 30 0RF No Action lisinopril 5 mg tablet 5 mg PO QDAY Qty: 14 0RF Problem List Clinical Impression: HTN (hypertension) Patient/Caregiver Discharge Instructions Education Materials: ED Hypertension, Established Additional Instructions: Please follow-up with PCP within 24-48 hours and return immediately if symptoms worsen. See PCP to control BP and get maintenance meds. Print Language: Welsh Stand Alone Forms: Patient Portal Info Letter PA/ENGRAVER [employer] Supervising Physician PA/ENGRA[employer] Supervising Physician: Dr. Doe
== END 2024-10-27 21:16 | disposition home or self-care (01) ==
PROVIDERS: Emergency Provider Emergency Medicine
DX: I10 Essential (primary) hypertension (principal)
CPT/HCPCS: 99283; A9270

== ENCOUNTER 2024-10-28 13:42 | Emergency (ER) | payer MEDICAID, SELFPAY ==
[2024-10-28 13:43] VITALS: BMI 27.3
[2024-10-28 14:01] VITALS: BP 165/99; PULSE 95; RESP 18; TEMP 36.6; O2SAT 99
--- NOTE | 2024-10-28 14:14 | PD.EDANX ---
ED Anxiety RME/HPI General Chief Complaint: Anxiety Stated Complaint: HIGH B/P FROM ANXIETY FOR A WHILE Time Seen by Provider: 10/28/24 14:10 Arrival date/time: 10/28/24 13:42 59-year-old male presents to the emergency department today for complaints of anxiety and stress patient reports has been placed in a stressful situation living with his mother and his brother who is on drugs. Patient also believes that he may be affected by a witch patient requesting medication patient reports he was given medication here in the emergency department 2 days ago which improved his symptoms. Limitations: no limitations Related Data Previous Rx's ?Medication ?Instructions ?Recorded lisinopril 5 mg tablet 5 mg PO QDAY #14 tabs 10/03/24 hydroxyzine HCl 25 mg tablet 25 mg PO BID PRN nervous #30 tabs 10/27/24 diazepam 2 mg tablet (Valium) 2 mg PO BID PRN anxiety #10 tabs 10/28/24 Allergies Allergy/AdvReac Type Severity Reaction Status Date / Time No Known Allergies Allergy Verified 10/28/24 13:45 Review of Systems Review of Systems Systems Reviewed: All systems reviewed, normal except as documented Constitutional Constitutional: Reports system reviewed and no additional complaints, except as documented, Denies fever(s) and Denies headache(s) Eyes Eyes: Reports system reviewed and no additional complaints, except as documented and Denies blurry vision ENT Ears, Nose, Mouth, and Throat: Reports system reviewed and no additional complaints, except as documented, Denies headache(s), Denies nasal congestion and Denies nasal discharge Cardiovascular Cardiovascular: Reports system reviewed and no additional complaints, except as documented, Denies chest pain and Denies dyspnea Respiratory Respiratory: Reports system reviewed and no additional complaints, except as documented, Denies chest congestion, Denies cough and Denies dyspnea Gastrointestinal Gastrointestinal: Reports system reviewed and no additional complaints, except as documented and Denies abdominal pain Integumentary/Breasts Skin/Breast: Reports system reviewed and no additional complaints, except as documented and Denies rash Neurologic Neurologic: Reports system reviewed and no additional complaints, except as documented, Reports as per HPI and Denies headache(s) Psychiatric Psychiatric: Reports system reviewed and no additional complaints, except as documented and Reports anxiety Past Medical History Past Medical History CARDIAC: Negative Congestive Heart Failure RESPIRATORY: Negative Chronic Obstructive Pulmonary Disease (COPD) GENITOURINARY: Negative Renal Disease ENDOCRINE: Negative Diabetes Mellitus Type 1 or Diabetes Mellitus Type 2 Social History SMOKING STATUS: Never smoker ED Exam General Limitations: Present no limitations General appearance: Present alert and in no apparent distress Head Head exam: Present atraumatic, normocephalic and normal inspection Eye Eye exam: Present normal appearance, PERRL and EOMI; Absent conjunctival injection ENT ENT exam: Present normal exam, normal oropharynx and mucous membranes moist Neck Neck exam: Present normal inspection, full ROM and trachea midline Chest Chest inspection: Present normal inspection and symmetric chest wall rise Respiratory Respiratory exam: Present normal lung sounds bilaterally Cardiovascular Cardiovascular exam: Present regular rate, normal rhythm and normal heart sounds Abdominal Exam Abdominal exam: Present soft and normal bowel sounds Extremities Exam Extremities exam: Present normal inspection and full ROM Back Exam Back exam: Present normal inspection and full ROM Neurological Exam Neurological exam: Present alert, oriented X3, CN II-XII intact, normal gait and reflexes normal; Absent motor sensory deficit Psychiatric Psychiatric exam: Present anxious; Absent agitated, manic, homicidal ideation or suicidal ideation Skin Skin exam: Present warm, dry, intact and normal color Course Quality Measures none Vital Signs Vital signs: Vital Signs Temperature 98 F 10/28/24 14:01 Pulse Rate 95 10/28/24 14:01 Respiratory Rate 18 10/28/24 14:01 Blood Pressure 165/99 H 10/28/24 14:01 Pulse Oximetry (%) 99 10/28/24 14:01 Oxygen Delivery Method Room Air 10/28/24 14:01 O2 saturation 99% on room air WNL Anxiety MDM Narrative MDM Narrative: 59-year-old male presents to the emergency department today for complaints of anxiety and stress patient reports has been placed in a stressful situation living with his mother and his brother who is on drugs. Patient also believes that he may be affected by a witch patient requesting medication patient reports he was given medication here in the emergency department 2 days ago which improved his symptoms. On exam patient well-appearing patient does not appear toxic no acute distress Patient reports no suicidal homicidal issues patient does carry on a conversation but is quite concerned that he might be affected by other forces. Patient discharged home in no distress to follow-up with primary care doctor in the next 24 to 48 hours and for any worsening symptoms to return to the ER immediately Patient data External records reviewed:: [facility] previous records Clinical information provided by:: patient Social determinants that could affect healthcare access:: none Patient has the following chronic illnesses:: None How is presenting disease/condition affected by chronic disease/condition?: no chronic disease Evaluation data The following diagnostics were reviewed and interpreted by me:: other (specify) Lab and/or radiology exams considered but not ordered:: Considered not indicated Interpretation Summary: N/A Medications / Prescriptions Medications or Prescriptions considered but not ordered:: Given Rx Medication administrations:: Given Rx Consultations Consultation(s) initiated? (list below): No Diagnosis Differential diagnosis anxiety: hyperventilation, panic disorder and acute anxiety Most likely diagnosis given after review of the tests above:: Anxiety Admission Indicated Admission indicated?: not indicated Admission Request Was there a request for admission?: No Disposition Plan Disposition Plan: Discharge Discharge Attestation Discharge Attestation: The patient and all family members were given an opportunity to ask questions and understood the discharge instructions. Discharge instructions specifically effects, indications for sooner follow up or return to the emergency department, and the expected course of current diagnosis. Patient condition: Stable Discharge Plan Plan Patient Disposition: HOME (Self Care) Discharge Disposition comment: Stable Prescriptions/Referrals Prescriptions/Med Rec: New diazepam [Valium] 2 mg tablet 2 mg PO BID PRN (Reason: anxiety) Qty: 10 0RF No Action lisinopril 5 mg tablet 5 mg PO QDAY Qty: 14 0RF hydroxyzine HCl 25 mg tablet 25 mg PO BID PRN (Reason: nervous) Qty: 30 0RF Problem List Clinical Impression: Acute anxiety Patient/Caregiver Discharge Instructions Education Materials: ED Anxiety Reaction Additional Instructions: Please follow up with your primary care doctor in the next 24-48hrs for any worsening symptoms return here immediately Print Language: Panamanian Stand Alone Forms: Brooke Award Info., Patient Portal Info Letter PA/HEAD OF LOSS PREVENTION Supervising Physician PA/HEAD OF LOSS PREVENTION Supervising Physician: dr amaral
== END 2024-10-28 14:20 | disposition home or self-care (01) ==
LOC: SERX 14:21
PROVIDERS: Emergency Provider Family Medicine; PCP Family Medicine
DX: F41.9 Anxiety disorder, unspecified (principal)
CPT/HCPCS: 99281

== ENCOUNTER 2024-10-29 00:10 | Emergency (ER) | payer MEDICAID, SELFPAY ==
[2024-10-29 00:12] VITALS: BMI 27.3
--- NOTE | 2024-10-29 00:15 | EKG_ITS ---
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
[2024-10-29 00:47] VITALS: BP 151/97; PULSE 79; RESP 18; TEMP 37.4; O2SAT 97
--- NOTE | 2024-10-29 01:00 | PD.EDCHEST ---
ED Chest Pain RME/HPI General Chief Complaint: Chest Pain Stated Complaint: CHEST AREA PAIN Time Seen by Provider: 10/29/24 01:00 Arrival date/time: 10/29/24 00:10 RME / HPI RME / HPI narrative: See [facility] for Dr. Doe's HPI Documentation. Related Data Previous Rx's ?Medication ?Instructions ?Recorded lisinopril 5 mg tablet 5 mg PO QDAY #14 tabs 10/03/24 hydroxyzine HCl 25 mg tablet 25 mg PO BID PRN nervous #30 tabs 10/27/24 diazepam 2 mg tablet (Valium) 2 mg PO BID PRN anxiety #10 tabs 10/28/24 alprazolam 0.5 mg tablet (Xanax) 0.5 mg PO BID PRN anxiety #10 tabs 10/29/24 Allergies Allergy/AdvReac Type Severity Reaction Status Date / Time No Known Allergies Allergy Verified 10/29/24 14:23 Review of Systems Review of Systems Systems Reviewed: All systems reviewed, normal except as documented ED Exam Narrative Physical exam: See [facility] for Dr. Doe's Physical Exam Documentation. Course Quality Measures none Orders Category Date Time Status EKG (ED ONLY) *Do not use* NOW Care 10/29/24 00:15 Completed EKG (ED Only) Stat Exams 10/29/24 00:15 Draft Alcohol, Blood Medical Stat Lab 10/29/24 01:18 Completed BMP [Basic Metabolic Panel] Stat Lab 10/29/24 01:18 Completed BNP [B-Type Natriuretic Peptide] Stat Lab 10/29/24 01:18 Completed CBC Stat Lab 10/29/24 01:18 Completed Drug Screen,Urine Stat Lab 10/29/24 01:01 Completed Magnesium Stat Lab 10/29/24 01:18 Completed TSH [Thyroid Stimulating Hormone] Stat Lab 10/29/24 01:18 Completed Troponin I Stat Lab 10/29/24 01:18 Completed ALPRazoLAM [Xanax] Med 10/29/24 02:54 Discontinued 1 mg PO X1 ONE Vital Signs Vital signs: Vital Signs Temperature 99.4 F 10/29/24 00:47 Pulse Rate 79 10/29/24 00:47 Respiratory Rate 18 10/29/24 00:47 Blood Pressure 151/97 H 10/29/24 00:47 Pulse Oximetry (%) 97 10/29/24 00:47 Oxygen Delivery Method Room Air 10/29/24 00:47 Chest Pain MDM Narrative MDM Narrative:: This section includes all my notes and documentations, including HPI, PE, and ED course. Carlos Doe MD HPI: 59 y/o male presents with several days of intermittent episodes of chest pain and other symptoms. Including intense fear, pounding and racing heart, sweating, chills, shaking, trouble breathing, stomach pain, nausea, numbness and tingling in the hands and feet and face, confusion, hot flashes, and feeling faint. No other complaints. ROS: All negative except as documented in HPI. Physical Exam: General: Alert and oriented. Appears severely anxious. Eyes: Conjunctivae and lids clear. ENT: No nasal congestion. Neck: Supple. Heart: RRR. Lungs: No respiratory distress. Good air movement. No rhonchi, wheezing, rales. Abdomen: Soft and nontender. Normal bowel sounds. No distension. No rebound or guarding. Back: No CVA tenderness. Skin: Warm and dry. Neuro: Alert and oriented X 3. I reviewed all diagnostic test results: My interpretation of the EKG is sinus rhythm with no acute ST?T changes. Blood tests and urine tests unremarkable, including negative troponin/D-dimer/BNP. At this point, diagnoses include: Chest Pain due to anxiety Treatment here included: Xanax He felt much better. Recommended more outpatient cardiac workup. Based on my best medical judgment, made decision no further evaluation or treatment indicated at this time. Patient understands and agrees to the discharge instructions customized and printed, see below. Discharge instructions from Dr. Doe: 1. After extensive evaluation, there is no life-threatening condition. Such as heart attack. 2. Your symptoms may be due to underlying stress or anxiety or nerves. This is fairly common. 3. Take Xanax as needed. Whether this helps or not will be valuable information to your private doctors. 4. See a private doctor on 10/30/2024. To make sure there is no serious underlying heart condition, ask to help you get more tests for your heart that cannot be done here in the ER. Such as Holter Monitor (cardiac monitoring at home from a day to even a month), heart stress test (on treadmill or with medication), echocardiogram (imaging of your heart structures), heart catherization (checking for blockages in your heart arteries), and a referral to see a Political Researcher. 5. Seek immediate medical care with worsening or with any concerns. Carlos Doe MD Patient data External records reviewed:: [facility] previous records (Reviewed prior ED records from 10/28/24. Patient was seen for Acute anxiety.) Clinical information provided by:: patient Social determinants that could affect healthcare access:: none Patient has the following chronic illnesses:: None reported How is presenting disease/condition affected by chronic disease/condition?: no chronic disease Evaluation data The following diagnostics were reviewed and interpreted by me:: lab results and EKG tracing(s) (My interpretation of the EKG is: Sinus rhythm (86 bpm) with nonspecific ST-T changes. Carlos Doe MD) Lab and/or radiology exams considered but not ordered:: None Interpretation Summary: I reviewed all diagnostic test results: My interpretation of the EKG is sinus rhythm with no acute ST?T changes. Blood tests and urine tests unremarkable, including negative troponin/D-dimer/BNP. Medications / Prescriptions Medications or Prescriptions considered but not ordered:: None Medication administrations:: Medication Administration History Discontinued Medications Alprazolam (Alprazolam 0.25 Mg Tablet) 1 mg PO X1 ONE Stop: 10/29/24 02:55 Last Admin: 10/29/24 03:25 Dose: 1 mg Documented By: ROLAND Whitlock Consultations Consultation(s) initiated? (list below): No Diagnosis Chest Pain Differential Diagnosis: stable angina, unstable angina pectoris, atypical chest pain, costochondritis, chest pain and other (Anxiety disorder, Panic Disorder) Most likely diagnosis given after review of the tests above:: Chest Pain due to anxiety Admission Indicated Admission indicated?: not indicated Explain why admission is indicated or not indicated:: With significant improvement and no condition needing emergent intervention, there was no indication for admission. Admission Request Was there a request for admission?: No Disposition Plan Disposition Plan: Discharge Discharge Attestation Discharge Attestation: The patient and all family members were given an opportunity to ask questions and understood the discharge instructions. Discharge instructions specifically effects, indications for sooner follow up or return to the emergency department, and the expected course of current diagnosis. Patient condition: Stable Discharge Plan Plan Patient Disposition: HOME (Self Care) Prescriptions/Referrals Prescriptions/Med Rec: New alprazolam [Xanax] 0.5 mg tablet 0.5 mg PO BID PRN (Reason: anxiety) Qty: 10 0RF No Action lisinopril 5 mg tablet 5 mg PO QDAY Qty: 14 0RF hydroxyzine HCl 25 mg tablet 25 mg PO BID PRN (Reason: nervous) Qty: 30 0RF diazepam [Valium] 2 mg tablet 2 mg PO BID PRN (Reason: anxiety) Qty: 10 0RF Referrals: Allan Casas MD [Primary Care Provider, Family Practice] - In 1 week Problem List Clinical Impression: Chest pain Patient/Caregiver Discharge Instructions Discharge Activity: activity as tolerated Education Materials: ED Anxiety Reaction, ED Chest Pain, Uncertain Cause, ED Panic Attack Additional Instructions: Discharge instructions from Dr. Doe: 1. After extensive evaluation, there is no life-threatening condition. Such as heart attack. 2. Your symptoms may be due to underlying stress or anxiety or nerves. This is fairly common. 3. Take Xanax as needed. Whether this helps or not will be valuable information to your private doctors. 4. See a private doctor on 10/30/2024. To make sure there is no serious underlying heart condition, ask to help you get more tests for your heart that cannot be done here in the ER. Such as Holter Monitor (cardiac monitoring at home from a day to even a month), heart stress test (on treadmill or with medication), echocardiogram (imaging of your heart structures), heart catherization (checking for blockages in your heart arteries), and a referral to see a Political Researcher. 5. Seek immediate medical care with worsening or with any concerns. Print Language: Serbian Stand Alone Forms: Brooke Award Info., Patient Portal Info Letter
[2024-10-29 01:39] LABS: Basophils # (Auto) 0.1 Thou/mm3 (0.0-0.2); Basophils % (Auto) 1 % (0-2.5); Eosinophils # (Auto) 0.2 Thou/mm3 (0.0-0.5); Eosinophils % (Auto) 2 % (0-10); Hematocrit 42.0 % (41.0-53.0); Hemoglobin 14.3 g/dL (13.5-16.0); Immature Granulocytes Auto 0.03 Thou/mm3 (0.00-0.00); Lymphocytes # (Auto) 2.2 Thou/mm3 (1.0-4.8); Lymphocytes % (Auto) 25 % (10-50); Mean Corpuscular HGB Conc 34.0 g/dl (31.0-37.0); Mean Corpuscular Hemoglobin 30.7 pg (25.0-35.0); Mean Corpuscular Volume 90 fL (80-100); Monocytes # (Auto) 0.9 Thou/mm3 (0.0-0.8); Monocytes % (Auto) 10 % (0-12); Neutrophils # (Auto) 5.4 Thou/mm3 (1.8-7.7); Neutrophils % (Auto) 61 % (37-80); Nucleated Red Blood Cell # 0.00 Thou/mm3 (0.00-0.00); Nucleated Red Blood Cell % 0 /100 WBC (0); Platelet Count 304 Thou/mm3 (140-440); RDW Standard Deviation 43.0 fL (35.1-43.9); Red Blood Count 4.66 Miln/mm3 (4.50-5.90); White Blood Count 8.8 Thou/mm3 (3.8-10.6)
[2024-10-29 02:04] LABS: Alcohol, Blood Medical < 3.0 mg/dL (0-10.0); Anion Gap 7 (7-16); B-Type Natriuretic Peptide < 20 pg/mL (0-100); BUN/Creatinine Ratio 8 Ratio (12-20); Blood Urea Nitrogen 12 mg/dL (9-23); Calcium 10.1 mg/dL (8.3-10.6); Carbon Dioxide 26.5 mMol/L (20.0-31.0); Chloride 106 mMol/L (98-107); Creatinine (Component) 1.6 mg/dL (0.6-1.3); Estimated Creatinine Clearance 48.7 mL/min (>60); Glucose 97 mg/dL (74-106); Magnesium 2.1 mg/dL (1.6-2.6); Osmolality,Calculated 277 (275-295); Potassium 4.1 mMol/L (3.4-5.1); Sodium 139 mMol/L (136-145); Thyroid Stimulating Hormone 2.38 uIU/mL (0.55-4.78); Troponin I < 0.002 ng/mL (0.0-0.045); eGFR 50 See Note
[2024-10-29 02:52] VITALS: BP 162/99; PULSE 93; RESP 20; O2SAT 99
[2024-10-29 03:30] LABS: Amphetamine/Methamp Scrn,U Negative (Negative); Barbiturate Screen,Urine Negative (Negative); Benzodiazepines Screen,Urine Positive (Negative); Benzoylecgonine Screen, Ur Negative (Negative); Fentanyl Screen,Urine Negative (Negative); Opiate Screen,Urine Negative (Negative); THC Screen,Urine Negative (Negative)
[2024-10-29 04:00] VITALS: RESP 14
== END 2024-10-29 04:01 | disposition home or self-care (01) ==
PROVIDERS: Emergency Provider Emergency Medicine; PCP Family Medicine
DX: R07.9 Chest pain, unspecified (principal); R94.31 Abnormal electrocardiogram [ECG] [EKG]
CPT/HCPCS: 36415; 80048; 80307; 80320; 83735; 83880; 84443; 84484; 85025; 93005; 99283; A9270; G0480

== ENCOUNTER 2024-10-29 14:20 | Emergency (ER) | payer MEDICAID, SELFPAY ==
[2024-10-29 14:21] VITALS: BMI 27.3
[2024-10-29 14:26] VITALS: BP 148/101; PULSE 105; RESP 17; TEMP 37.3; O2SAT 97
--- NOTE | 2024-10-29 14:42 | PD.EDANX ---
ED Anxiety RME/HPI General Chief Complaint: Arrhythmia/Palpitations Stated Complaint: RAPID HEART BEAT, SEEN YESTERDAY Time Seen by Provider: 10/29/24 14:27 Arrival date/time: 10/29/24 14:20 Related Data Previous Rx's ?Medication ?Instructions ?Recorded lisinopril 5 mg tablet 5 mg PO QDAY #14 tabs 10/03/24 hydroxyzine HCl 25 mg tablet 25 mg PO BID PRN nervous #30 tabs 10/27/24 diazepam 2 mg tablet (Valium) 2 mg PO BID PRN anxiety #10 tabs 10/28/24 alprazolam 0.5 mg tablet (Xanax) 0.5 mg PO BID PRN anxiety #10 tabs 10/29/24 Allergies Allergy/AdvReac Type Severity Reaction Status Date / Time No Known Allergies Allergy Verified 10/29/24 14:23 Course Vital Signs Vital signs: Vital Signs Temperature 99.2 F 10/29/24 14:26 Pulse Rate 105 H 10/29/24 14:26 Respiratory Rate 17 10/29/24 14:26 Blood Pressure 148/101 H 10/29/24 14:26 Pulse Oximetry (%) 97 10/29/24 14:26 Oxygen Delivery Method Room Air 10/29/24 14:26 Discharge Plan Plan Patient Disposition: HOME (Self Care) Patient condition on transfer: Stable Prescriptions/Referrals Prescriptions/Med Rec: No Action lisinopril 5 mg tablet 5 mg PO QDAY Qty: 14 0RF hydroxyzine HCl 25 mg tablet 25 mg PO BID PRN (Reason: nervous) Qty: 30 0RF diazepam [Valium] 2 mg tablet 2 mg PO BID PRN (Reason: anxiety) Qty: 10 0RF alprazolam [Xanax] 0.5 mg tablet 0.5 mg PO BID PRN (Reason: anxiety) Qty: 10 0RF Problem List Clinical Impression: Acute anxiety Patient/Caregiver Discharge Instructions Education Materials: ED Anxiety Reaction Additional Instructions: Please follow-up with your primary care physician for management of your anxiety medications. Print Language: Montenegrin Stand Alone Forms: [employer] Info., Patient Portal Info Letter PA/XENA Supervising Physician PA/XENA Supervising Physician: Anat
--- NOTE | 2024-10-29 14:54 | PD.EDANX ---
ED Anxiety RME/HPI General Chief Complaint: Arrhythmia/Palpitations Stated Complaint: RAPID HEART BEAT, SEEN YESTERDAY Time Seen by Provider: 10/29/24 14:27 Source: patient, RN notes reviewed and old records reviewed Arrival date/time: 10/29/24 14:20 Mode of arrival: ambulatory Limitations: no limitations RME / HPI RME / HPI narrative: 59yom presents to ED for anxiety initiated again this afternoon. This is patient's fifth ED visit in the past 3 days for similar complaint. He had a full cardiac workup this morning and was discharged at 0400. Patient has been prescribed both Valium and Xanax for symptoms; he reports he did not take either prior to ED arrival. Patient c/o palpitations and squiggly sensation in left hand. Symptoms have currently resolved. No shortness of breath, chest pain, nausea/vomiting, dizziness, syncope or SI/HI reported. Related Data Previous Rx's ?Medication ?Instructions ?Recorded lisinopril 5 mg tablet 5 mg PO QDAY #14 tabs 10/03/24 hydroxyzine HCl 25 mg tablet 25 mg PO BID PRN nervous #30 tabs 10/27/24 diazepam 2 mg tablet (Valium) 2 mg PO BID PRN anxiety #10 tabs 10/28/24 alprazolam 0.5 mg tablet (Xanax) 0.5 mg PO BID PRN anxiety #10 tabs 10/29/24 Allergies Allergy/AdvReac Type Severity Reaction Status Date / Time No Known Allergies Allergy Verified 10/29/24 14:23 Review of Systems Review of Systems Systems Reviewed: All systems reviewed, normal except as documented ENT Ears, Nose, Mouth, and Throat: Denies dizziness Cardiovascular Cardiovascular: Denies chest pain, Denies dyspnea, Denies lightheadedness, Reports palpitations (Resolved) and Denies syncope Respiratory Respiratory: Denies dyspnea Gastrointestinal Gastrointestinal: Denies nausea and Denies vomiting Neurologic Neurologic: Denies dizziness and Denies syncope Psychiatric Psychiatric: Reports anxiety, Denies homicidal ideation, Reports panic attacks and Denies suicidal ideation Endocrine Endocrine: Reports palpitations (Resolved) Past Medical History Past Medical History PSYCHO/SOCIAL: Positive Anxiety Social History SMOKING STATUS: Never smoker SUBSTANCE USE: does not use ALCOHOL: Current (Occasional) ED Exam General Limitations: Present no limitations General appearance: Present alert and in no apparent distress Head Head exam: Present atraumatic and normocephalic Eye Eye exam: Present normal appearance, PERRL and EOMI ENT ENT exam: Present normal exam and mucous membranes moist Neck Neck exam: Present normal inspection and full ROM Chest Chest inspection: Present normal inspection and symmetric chest wall rise Respiratory Respiratory exam: Present normal lung sounds bilaterally; Absent respiratory distress Cardiovascular Cardiovascular exam: Present normal rhythm and tachycardia (Mild, HR 105) Back Exam Back exam: Present normal inspection and full ROM Neurological Exam Neurological exam: Present alert and oriented X3 Psychiatric Psychiatric exam: Present anxious (Mild); Absent homicidal ideation or suicidal ideation Skin Skin exam: Present warm, dry, intact and normal color Course Quality Measures none Vital Signs Vital signs: Vital Signs Temperature 99.2 F 10/29/24 14:26 Pulse Rate 105 H 10/29/24 14:26 Respiratory Rate 17 10/29/24 14:26 Blood Pressure 148/101 H 10/29/24 14:26 Pulse Oximetry (%) 97 10/29/24 14:26 Oxygen Delivery Method Room Air 10/29/24 14:26 Anxiety MDM Narrative MDM Narrative: 59yom presents to ED for anxiety initiated again this afternoon. This is patient's fifth ED visit in the past 3 days for similar complaint. He had a full cardiac workup this morning and was discharged at 0400. Patient has been prescribed both Valium and Xanax for symptoms; he reports he did not take either prior to ED arrival. Patient c/o palpitations and squiggly sensation in left hand. Symptoms have currently resolved. No shortness of breath, chest pain, nausea/vomiting, dizziness, syncope or SI/HI reported. Patient is currently asymptomatic. He states I thought I should just come back to get checked out again. Cardiac workup from this morning reviewed and negative. Long discussion with the patient regarding anxiety and taking prescribed medications when symptoms arise. Strongly encouraged PCP follow-up for long-term management of anxiety. Patient agreeable to plan of care, states he would like to be discharged home at this time. Stable for discharge, RTED precautions given. Patient data External records reviewed:: [facility] previous records (10/29/2024 ED visit for chest pain, anxiety) Clinical information provided by:: patient Social determinants that could affect healthcare access:: other (specify) (Poor access to healthcare) Patient has the following chronic illnesses:: Anxiety How is presenting disease/condition affected by chronic disease/condition?: caused by Evaluation data The following diagnostics were reviewed and interpreted by me:: other (specify) (None) Lab and/or radiology exams considered but not ordered:: EKG Interpretation Summary: None Medications / Prescriptions Medications or Prescriptions considered but not ordered:: Ativan: Patient states he will take as prescribed Valium at home Medication administrations:: None Consultations Consultation(s) initiated? (list below): No Diagnosis Differential diagnosis anxiety: hyperventilation, panic disorder and acute anxiety Most likely diagnosis given after review of the tests above:: Anxiety reaction Admission Indicated Admission indicated?: not indicated Admission Request Was there a request for admission?: No Disposition Plan Disposition Plan: Discharge Discharge Attestation Discharge Attestation: The patient and all family members were given an opportunity to ask questions and understood the discharge instructions. Discharge instructions specifically effects, indications for sooner follow up or return to the emergency department, and the expected course of current diagnosis. Patient condition: Stable Discharge Plan Plan Patient Disposition: HOME (Self Care) Patient condition on transfer: Stable Prescriptions/Referrals Prescriptions/Med Rec: No Action lisinopril 5 mg tablet 5 mg PO QDAY Qty: 14 0RF hydroxyzine HCl 25 mg tablet 25 mg PO BID PRN (Reason: nervous) Qty: 30 0RF diazepam [Valium] 2 mg tablet 2 mg PO BID PRN (Reason: anxiety) Qty: 10 0RF alprazolam [Xanax] 0.5 mg tablet 0.5 mg PO BID PRN (Reason: anxiety) Qty: 10 0RF Problem List Clinical Impression: Acute anxiety Patient/Caregiver Discharge Instructions Education Materials: ED Anxiety Reaction Additional Instructions: Please follow-up with your primary care physician for management of your anxiety medications. Print Language: B[place]udian Stand Alone Forms: Brooke Award Info., Patient Portal Info Letter PA/ORGANIC SEARCH LEAD Supervising Physician PA/ORGANIC SEARCH LEAD Supervising Physician: Anat
== END 2024-10-29 14:55 | disposition home or self-care (01) ==
LOC: SERX 15:28
PROVIDERS: Emergency Provider Emergency Medicine
DX: F41.9 Anxiety disorder, unspecified (principal)
CPT/HCPCS: 99281

== ENCOUNTER 2024-11-01 00:23 | Emergency (ER) | payer MEDICAID, SELFPAY ==
[2024-11-01 00:25] VITALS: BMI 27.3
[2024-11-01 00:29] VITALS: BP 162/96; PULSE 111; RESP 19; TEMP 36.8; O2SAT 97
--- NOTE | 2024-11-01 01:07 | PD.EDADULT ---
ED General RME/HPI General Chief complaint: General Adult/Misc Complain Stated complaint: THINKS HE IS HAVING BAD REACTION WITH VALIUM Arrival date/time: 11/01/24 00:23 RME / HPI RME / HPI narrative: Dr. Sabillon?s Main ED Evaluation: 59yo male with a history of anxiety presents to the ED because I think I'm having a reaction to the anti-anxiety medications . Patient states he was given 10 tablets of Xanax and woke up at 0300 yesterday morning feeling like my body was racing . Patient denies any illicit drug use. Denies any other associated symptoms. NKA. Related Data Previous Rx's ?Medication ?Instructions ?Recorded lisinopril 5 mg tablet 5 mg PO QDAY #14 tabs 10/03/24 hydroxyzine HCl 25 mg tablet 25 mg PO BID PRN nervous #30 tabs 10/27/24 diazepam 2 mg tablet (Valium) 2 mg PO BID PRN anxiety #10 tabs 10/28/24 alprazolam 0.5 mg tablet (Xanax) 0.5 mg PO BID PRN anxiety #10 tabs 10/29/24 Allergies Allergy/AdvReac Type Severity Reaction Status Date / Time No Known Allergies Allergy Verified 11/01/24 00:24 Review of Systems Review of Systems Systems Reviewed: All systems reviewed, normal except as documented Past Medical History Past Medical History CARDIAC: Negative Congestive Heart Failure RESPIRATORY: Negative Chronic Obstructive Pulmonary Disease (COPD) GENITOURINARY: Negative Renal Disease ENDOCRINE: Negative Diabetes Mellitus Type 1 or Diabetes Mellitus Type 2 PSYCHO/SOCIAL: Positive Anxiety Social History SMOKING STATUS: Never smoker SUBSTANCE USE: does not use ED Exam Narrative Physical exam: Generally patient is alert slightly anxious but no obvious distress, heart regular rate and rhythm, lungs clear to auscultation equal bilaterally, abdomen soft bowel sounds present nondistended nontender, neurologic exam shows patient be slightly anxious however without motor deficit and alert and oriented x 4. Course Quality Measures none Vital Signs Vital signs: Vital Signs Temperature 98.2 F 11/01/24 00:29 Pulse Rate 111 H 11/01/24 00:29 Respiratory Rate 19 11/01/24 00:29 Blood Pressure 162/96 H 11/01/24 00:29 Pulse Oximetry (%) 97 11/01/24 00:29 Oxygen Delivery Method Room Air 11/01/24 00:29 Discharge Plan Plan Patient Disposition: HOME (Self Care) Prescriptions/Referrals Prescriptions/Med Rec: No Action lisinopril 5 mg tablet 5 mg PO QDAY Qty: 14 0RF hydroxyzine HCl 25 mg tablet 25 mg PO BID PRN (Reason: nervous) Qty: 30 0RF diazepam [Valium] 2 mg tablet 2 mg PO BID PRN (Reason: anxiety) Qty: 10 0RF alprazolam [Xanax] 0.5 mg tablet 0.5 mg PO BID PRN (Reason: anxiety) Qty: 10 0RF Referrals: Allan Casas MD [Primary Care Provider, Family Practice] - In 1 week Problem List Clinical Impression: Acute anxiety Patient/Caregiver Discharge Instructions Education Materials: ED Anxiety Reaction Additional Instructions: Continue exercising. Follow-up with your doctor as needed for further treatment and evaluation. Print Language: Luxembourgish Stand Alone Forms: Brooke Award Info., Patient Portal Info Letter MDM Narrative MDM hospital course (for use when minimal MDM required): Scribe Attestation: 11/01/24 - Li Ashley am scribing for and in the presence of Dr. Sabillon. Patient essentially just needed reassurance that there is nothing wrong with him at this time. He feels somewhat anxious. He was counseled on coping mechanisms such as exercise and as simple as walking. Patient stable for discharge. Clinical Information Provided by: patient Medical Records reviewed [facility] (Per chart review, patient was seen here on 10/29/24 for anxiety.) Meds/Rx considered, not ordered None Labs/Rad/Tests considered, not ordered None Chronic Illness/Social Conditions Explain: Hx HTN, anxiety EKG EKG not done Labs Labs: none Imaging Imaging interpretation: none Medication Administration(s) none
[2024-11-01 01:17] VITALS: BP 162/105; PULSE 90; RESP 16; TEMP 36.6; O2SAT 98
[2024-11-01 01:20] VITALS: BP 162/105; PULSE 90; RESP 16; TEMP 36.6; O2SAT 98
== END 2024-11-01 01:21 | disposition home or self-care (01) ==
PROVIDERS: Emergency Provider Emergency Medicine; PCP Family Medicine
DX: F41.9 Anxiety disorder, unspecified (principal)
CPT/HCPCS: 99281